=== PATIENT | female | born 1940 | race Caucasian/White ===

== ENCOUNTER 2024-08-31 14:00 | Outpatient (CLI) | payer MEDICARE, OTHER | END 2024-08-31 14:01 | disposition home or self-care (01) | LOC: SCSMRI 14:00 | PROVIDERS: ATTEND Internal Medicine | DX: R41.3 Other amnesia (principal); I67.82 Cerebral ischemia; R93.0 Abnormal findings on diagnostic imaging of skull and head, not elsewhere classified | CPT/HCPCS: 70551 ==